=== PATIENT | male | born 1995 | race Caucasian/White ===

== ENCOUNTER 2023-07-30 19:27 | Emergency (ER) | payer BC ==
[~2023-07-30] VITALS: Ht 180.3 cm; Wt 97.5 kg
[2023-07-30 19:34] VITALS: BP 132/84; PULSE 59; RESP 16; TEMP 97.5; O2SAT 100
[2023-07-30 20:18] VITALS: BP 132/84; PULSE 59; RESP 16; TEMP 97.5; O2SAT 100
[2023-07-30] MEDS: FLUORESCEIN OPTH STRIP 1 MG OP ONE (20:57)
[2023-07-30] MEDS ORDERED: POLY10DR5 OP (21:18)
[2023-07-30] MEDS ORDERED: IBUP-2213 PO (21:18)
== END 2023-07-30 21:37 | disposition home or self-care (01) ==
LOC: MED 19:27
DX: H10.9 Unspecified conjunctivitis (principal); Z79.899 Other long term (current) drug therapy
CPT/HCPCS: 99283